=== PATIENT | female | born 1950 | race Caucasian/White ===

== ENCOUNTER 2018-08-03 02:22 | Emergency (ER) | payer MEDICARE ==
[~2018-08-03] VITALS: Ht 160 cm; Wt 45.4 kg
[~2018-08-03 02:22] MED LIST: ASCO1ER PO; ERGO400 PO; NAPR500 PO
[2018-08-03] MEDS ORDERED: SIMV10 PO (03:32)
[2018-08-03] MEDS ORDERED: GABAPENTIN (03:33)
[2018-08-03] MEDS ORDERED: [UNRECOGNIZED DRUG - OTHER] (03:33)
== END 2018-08-03 05:20 | disposition home or self-care (01) ==
LOC: ER 02:22
DX: K66.8 Other specified disorders of peritoneum (principal); Z88.8 Allergy status to other drugs, medicaments and biological substances; Z79.899 Other long term (current) drug therapy
CPT/HCPCS: 99282

== ENCOUNTER 2019-04-01 11:45 | Emergency (ER) | payer MEDICARE ==
[~2019-04-01] VITALS: Ht 160 cm; Wt 52.2 kg
[~2019-04-01 11:45] MED LIST changes: +GABAPENTIN; +SIMV10 PO; +[UNRECOGNIZED DRUG - OTHER]
== END 2019-04-01 14:02 | disposition home or self-care (01) ==
LOC: ER 11:45
DX: K94.23 Gastrostomy malfunction (principal); Z88.8 Allergy status to other drugs, medicaments and biological substances; Z79.899 Other long term (current) drug therapy; Z85.3 Personal history of malignant neoplasm of breast
CPT/HCPCS: 43762; 49465; 99283-25; Q9963

== ENCOUNTER 2019-07-19 10:23 | Emergency (ER) | payer MEDICARE ==
[~2019-07-19] VITALS: Ht 157.5 cm; Wt 53.5 kg
== END 2019-07-19 12:05 | disposition home or self-care (01) ==
LOC: ER 10:23
DX: Z43.1 Encounter for attention to gastrostomy (principal); Z88.8 Allergy status to other drugs, medicaments and biological substances; Z79.899 Other long term (current) drug therapy
CPT/HCPCS: 43762; 49465; 99283-25; Q9963

== ENCOUNTER → 2019-09-09 | Outpatient (CLI) | payer MEDICARE | END | disposition home or self-care (01) | LOC: LAB SHORT 13:10 → PLD 13:10 | DX: D48.5 Neoplasm of uncertain behavior of skin (principal) | CPT/HCPCS: 88305 ==

== ENCOUNTER 2019-09-28 06:04 | Observation (INO) | payer MEDICARE ==
[~2019-09-28] VITALS: Ht 157.5 cm; Wt 53.1 kg
[2019-09-28] MEDS ORDERED: Zantac150 MG (06:18)
[2019-09-28] MEDS ORDERED: PEPCID20 MG PT (06:18)
[2019-09-28 06:57] LABS: BASOPHILS ABSOLUTE AUTO 0.02 K/mm3 (0.00-0.23); BASOPHILS PERCENT AUTO 0 % (0-2); EOSINOPHILS ABSOLUTE AUTO 0.07 K/mm3 (0.00-0.68); EOSINOPHILS PERCENT AUTO 1 % (0-6); Hematocrit 38.6 % (33.0-51.0); Hemoglobin 12.9 g/dL (11.5-16.0); IMMATURE GRAN ABSOLUTE AUTO 0.01 K/mm3 (0.00-0.10); IMMATURE GRAN PERCENT AUTO 0 % (0-1); LYMPHOCYTES ABSOLUTE AUTO 0.71 K/mm3 (0.84-5.20); LYMPHOCYTES PERCENT AUTO 9 % (21-46); MONOCYTES ABSOLUTE AUTO 0.51 K/mm3 (0.16-1.47); MONOCYTES PERCENT AUTO 7 % (4-13); Mean Corpuscular HGB Conc 33.4 g/dL (31.5-36.5); Mean Corpuscular Volume 93 fL (80-100); NEUTROPHILS ABSOLUTE AUTO 6.34 K/mm3 (1.96-9.15); NEUTROPHILS PERCENT AUTO 83 % (41-73); Platelet Count 174 K/mm3 (150-400); RDW Coefficient Variation 12.3 % (11.7-14.2); RDW Standard Deviation 42.2 fL (35.1-46.3); Red Blood Cell Count 4.16 M/mm3 (3.80-5.20); White Blood Cell Count 7.66 K/mm3 (4.00-11.30)
[2019-09-28 07:19] LABS: Alanine Aminotransfer (ALT/SGP 46 U/L (12-78); Albumin, Blood 3.5 g/dL (3.4-5.0); Anion Gap 8 mmol/L (6-16); Aspartate Aminotrans (AST/SGOT 79 U/L (12-37); Blood Urea Nitrogen 24 mg/dL (8-24); Bun/Creatinine Ratio 40.1 (12.0-20.0); CO2, Blood 23 mmol/L (21-32); Calcium, Blood 9.2 mg/dL (8.5-10.1); Chloride, Blood 110 mmol/L (98-108); Glomerular Filtration Rate >60 (60-); Glucose, Blood 97 mg/dL (70-99); Potassium, Blood 3.8 mmol/L (3.5-5.5); Sodium, Blood 141 mmol/L (136-145)
[2019-09-28 07:23] LABS: Albumin/Globulin Ratio 0.9 (0.8-1.8); Alk Phos 77 U/L (50-136); Bilirubin, Total 0.8 mg/dL (0.1-1.0); Globulin, Blood 3.8 g/dL (2.2-4.0); Total Protein, Blood 7.3 g/dL (6.4-8.2); Troponin I <0.015 ng/mL (0.000-0.040)
--- NOTE | 2019-09-28 13:27 | NUR ---
Pt requested ice water, JEANNE approved, i set up oral care supplies, pt is gastrointestinal tube feed. As of right now no Q 6 CBG's or ac+hs.
--- NOTE | 2019-09-28 15:15 | NUR ---
ECHOCARDIOGRAM COMPLETED
--- NOTE | 2019-09-28 19:08 | NUR ---
NO ACUTE CHANGES NOTED. NO CURRENT COMPLAINTS OF CHEST PAIN OR DISCOMFORT NOTED. PATIENT IS TOLERATING TUBE FEEDINGS WELL. NO OTHER ISSUES NOTED AT THIS TIME. WILL CONTINUE TO MONITOR FOR CHANGES.
--- NOTE | 2019-09-29 03:12 | NUR ---
SHIFT SUMMARY ASSUMED CARE PF PT AT 1900. PT IS A/O X3, DENIES N/T IN EXTREMITIES. HEART SOUNDS REGUALR, LUNG SOUNDS CLEAR, DENIES SOB/CP, ON TELE SHOWING SINUS @ 65. PT IS EAGER TO GO HOME TOMORROW IF SHE CAN. 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 CALL LIGHT IN REACH, BED IN LOWEST POSTION, WILL CONTINUE TO MONITOR UNTIL DAYSHIFT NURSE ARRIVES.
[2019-09-29 05:16] LABS: CHOL/HDL RATIO 3.1; Cholesterol 172 mg/dL (50-200); HDL Cholesterol 56 mg/dL (>39); LDL/HDL RATIO 1.8; Low Density Lipoprotein Chol 100 mg/dL (0-110); Triglycerides 79 mg/dL (30-160); Very Low Density Lipoprot Chol 15 mg/dL (6-32)
[2019-09-29] MEDS ORDERED: ASPI81CH PO (14:15)
--- NOTE | 2019-09-29 16:15 | NUR ---
[id number] discharge and appointmnet have been made pt family here to take her home.. educations done on discharge meds and she is tocontinue her tube feeding 4-5 cans a day
== END 2019-09-29 14:24 | disposition home or self-care (01) ==
LOC: ER 06:04 → MEDS 08:43
PROVIDERS: Emergency Medicine; ADMIT Internal Medicine
DX: R07.89 Other chest pain (principal); E78.5 Hyperlipidemia, unspecified; Z85.819 Personal history of malignant neoplasm of unspecified site of lip, oral cavity, and pharynx; Z85.3 Personal history of malignant neoplasm of breast; Z93.1 Gastrostomy status
CPT/HCPCS: 36415; 71046; 80053; 80061; 83880; 84484; 85025; 93005; 93010; 93306; 96374; 99285-25; A9270-GY; G0378; J2405; J3010

== ENCOUNTER 2019-10-05 11:25 | Emergency (ER) | payer MEDICARE ==
[~2019-10-05] VITALS: Ht 157.5 cm; Wt 53.1 kg
[~2019-10-05 11:25] MED LIST changes: +ASPI81CH PO; +PEPCID20 MG PT; +Zantac150 MG
== END 2019-10-05 17:41 | disposition home or self-care (01) ==
LOC: ER 11:25
DX: Z43.1 Encounter for attention to gastrostomy (principal); Z79.82 Long term (current) use of aspirin; Z88.8 Allergy status to other drugs, medicaments and biological substances; Z85.3 Personal history of malignant neoplasm of breast
CPT/HCPCS: 43762; 49465; 99283-25; Q9963

== ENCOUNTER 2019-12-30 09:44 | Emergency (ER) | payer MEDICARE ==
[~2019-12-30] VITALS: Ht 157.5 cm; Wt 52.2 kg
== END 2019-12-30 10:51 | disposition home or self-care (01) ==
LOC: ER 09:44
DX: K94.23 Gastrostomy malfunction (principal); Z88.8 Allergy status to other drugs, medicaments and biological substances; Z79.82 Long term (current) use of aspirin; Z79.899 Other long term (current) drug therapy
CPT/HCPCS: 99282

== ENCOUNTER 2020-02-09 21:44 | Emergency (ER) | payer MEDICARE ==
[~2020-02-09] VITALS: Ht 157.5 cm; Wt 52.2 kg
[2020-02-09] MEDS ORDERED: Prozac40 MG PO (22:23)
== END 2020-02-10 02:23 | disposition home or self-care (01) ==
LOC: ER 21:44
DX: Z43.1 Encounter for attention to gastrostomy (principal); Z88.8 Allergy status to other drugs, medicaments and biological substances; Z79.82 Long term (current) use of aspirin; Z85.3 Personal history of malignant neoplasm of breast
CPT/HCPCS: 49465; 99282-25; Q9963

== ENCOUNTER → 2020-09-19 | Outpatient (CLI) | payer MEDICARE ==
[~2020-09-19] MED LIST changes: +Prozac40 MG PO
== END | disposition home or self-care (01) ==
LOC: PLD 12:53 → LAB SHORT 12:53
DX: D04.71 Carcinoma in situ of skin of right lower limb, including hip (principal)
CPT/HCPCS: 88305

== ENCOUNTER 2021-09-18 22:39 | Emergency (ER) | payer MEDICARE ==
[~2021-09-18] VITALS: Ht 157.5 cm; Wt 49.9 kg
== END 2021-09-19 00:20 | disposition home or self-care (01) ==
LOC: ER 22:39
DX: K94.20 Gastrostomy complication, unspecified (principal); Z85.818 Personal history of malignant neoplasm of other sites of lip, oral cavity, and pharynx; Z85.3 Personal history of malignant neoplasm of breast
CPT/HCPCS: 43762; 99282

== ENCOUNTER 2021-10-30 23:21 | Emergency (ER) | payer MEDICARE ==
[~2021-10-30] VITALS: Ht 157.5 cm; Wt 53.1 kg
[2021-10-31] MEDS ORDERED: Flonase 0.05% N16 GM (02:40)
== END 2021-10-31 03:19 | disposition home or self-care (01) ==
LOC: ER 23:21
DX: K94.23 Gastrostomy malfunction (principal); Z88.8 Allergy status to other drugs, medicaments and biological substances; Z86.718 Personal history of other venous thrombosis and embolism
CPT/HCPCS: 99282

== ENCOUNTER 2022-03-25 18:27 | Emergency (ER) | payer MEDICARE ==
[~2022-03-25] VITALS: Ht 157.5 cm; Wt 53.1 kg
[~2022-03-25 18:27] MED LIST changes: +Flonase 0.05% N16 GM
== END 2022-03-25 21:11 | disposition home or self-care (01) ==
LOC: ER 18:27
DX: T85.528A Displacement of other gastrointestinal prosthetic devices, implants and grafts, initial encounter (principal); Z43.1 Encounter for attention to gastrostomy; Z88.8 Allergy status to other drugs, medicaments and biological substances; Z79.899 Other long term (current) drug therapy
CPT/HCPCS: 49465; Q9963

== ENCOUNTER → 2022-09-09 | Outpatient (CLI) | payer MEDICARE | END | disposition home or self-care (01) | LOC: LAB SHORT 10:35 → LAB 10:35 | DX: S61.451A Open bite of right hand, initial encounter (principal) | CPT/HCPCS: 87070; 87075; 87077; 87205 ==

== ENCOUNTER 2022-10-30 03:16 | Emergency (ER) | payer MEDICARE ==
[~2022-10-30] VITALS: Ht 162.6 cm; Wt 59.0 kg
== END 2022-10-30 04:13 | disposition home or self-care (01) ==
LOC: ER 03:16
DX: Z43.1 Encounter for attention to gastrostomy (principal)
CPT/HCPCS: 43762; 99282-25

== ENCOUNTER 2023-04-02 06:39 | Day surgery (SDC) | payer MEDICARE ==
[~2023-04-02] VITALS: Ht 157.5 cm; Wt 50.0 kg
[2023-04-02] MEDS ORDERED: GABA400 PO (06:56)
--- NOTE | 2023-04-02 07:09 | NUR ---
04/02/23 0709 Kayleen Kee IN THE LEFT EYE AT 0700 AND BÁRBARA IN AT 0704
[2023-04-02 08:27] VITALS: BP 137/73
== END 2023-04-02 08:45 | disposition home or self-care (01) ==
LOC: ORSCSDS 06:39
PROVIDERS: Student in an Organized Health Care Education/Training Program
PROC: 08RK3JZ Replacement of Left Lens with Synthetic Substitute, Percutaneous Approach (ICD-10-PCS; principal; 2023-04-02 08:00)
DX: H25.13 Age-related nuclear cataract, bilateral (principal); H53.001 Unspecified amblyopia, right eye; H40.003 Preglaucoma, unspecified, bilateral; H35.371 Puckering of macula, right eye; F41.9 Anxiety disorder, unspecified; K21.9 Gastro-esophageal reflux disease without esophagitis; F32.A Depression, unspecified; E78.5 Hyperlipidemia, unspecified; Z79.899 Other long term (current) drug therapy
CPT/HCPCS: A9270; J2001; J2250; J3010; J7040; V2632

== ENCOUNTER 2023-04-16 06:37 | Day surgery (SDC) | payer MEDICARE ==
[~2023-04-16] VITALS: Ht 157.5 cm; Wt 50.1 kg
[~2023-04-16 06:37] MED LIST changes: +GABA400 PO
--- NOTE | 2023-04-16 07:01 | NUR ---
04/16/23 0701 Clara Sinclair CALL LIGHT WITHIN REACH. TETRACAINE IN AT 0659 IN RIGHT EYE AND PLEDGETT IN AT 0700.
[2023-04-16 08:19] VITALS: BP 119/55
--- NOTE | 2023-04-16 08:23 | NUR ---
04/16/23 0823 VAIBHAV SNYDER IV REMOVED, WNL, POLINA WELL. CANNULA INTACT
== END 2023-04-16 08:34 | disposition home or self-care (01) ==
LOC: ORSCSDS 06:37
PROVIDERS: Student in an Organized Health Care Education/Training Program
PROC: 08RJ3JZ Replacement of Right Lens with Synthetic Substitute, Percutaneous Approach (ICD-10-PCS; principal; 2023-04-16 08:00)
DX: H25.11 Age-related nuclear cataract, right eye (principal); Z96.1 Presence of intraocular lens; K21.9 Gastro-esophageal reflux disease without esophagitis; F32.A Depression, unspecified; E78.5 Hyperlipidemia, unspecified; Z79.899 Other long term (current) drug therapy
CPT/HCPCS: J1100; J2001; J2250; J2405; J3010; J7040; V2632

== ENCOUNTER 2023-05-27 05:50 | Emergency (ER) | payer MEDICARE ==
[~2023-05-27] VITALS: Ht 157.5 cm; Wt 50.8 kg
[2023-05-27 06:01] VITALS: BP 145/62
== END 2023-05-27 06:51 | disposition home or self-care (01) ==
LOC: ER 05:50
DX: K94.23 Gastrostomy malfunction (principal); Z88.8 Allergy status to other drugs, medicaments and biological substances; Z79.899 Other long term (current) drug therapy; Z85.3 Personal history of malignant neoplasm of breast
CPT/HCPCS: 43762; 74018; 99283-25; Q9963